=== PATIENT | male | born 1975 | race Caucasian/White ===

== ENCOUNTER 2019-07-12 07:21 | Inpatient (IN) | payer SELFPAY ==
[~2019-07-12] VITALS: Ht 175.3 cm; Wt 82.6 kg
--- NOTE | 2019-07-12 07:25 | NUR ---
PT KAVON FROM [place] STREETS, PER EMS ALTERED RESPONDS TO PAINFUL STIMULI ONLY PLANT GUIDE. PT NOTED TO BE VOMITING. GOWNED AND PLACED ON MONITOR. STABLE VITALS. AWAITING MD HUGHES.
--- NOTE | 2019-07-12 07:45 | NUR ---
DR AHUJA AT BEDSIDE FOR EVAL.
[2019-07-12 08:08] LABS: APPEARANCE,URINE Clear (CLEAR); BILIRUBIN,URINE Negative (NEGATIVE); BLOOD, URINE Trace-intact Ery/uL (NEGATIVE); COLOR,URINE Yellow (YELLOW); KETONES,URINE Trace (NEGATIVE); LEUKOCYTE ESTERASE ,URINE Negative (NEGATIVE); NITRITE, URINE Negative (NEGATIVE); PROTEIN,URINE 30 mg/dl (NEGATIVE); UGLUCOSE Negative (NEGATIVE)
[2019-07-12 08:10] LABS: BACTERIA,URINE Few /HPF (None Seen)
[2019-07-12 08:11] LABS: SQUAMOUS EPITHELIAL CELL,UR None Seen /HPF (None Seen)
[2019-07-12 08:14] LABS: CALCIUM, SERUM 8.8 mg/dL (8.5-10.1); CARBON DIOXIDE 23 mmol/L (21-32); CHLORIDE 103 mmol/L (98-107); CREATININE 1.1 mg/dL (0.6-1.3); GLUCOSE 149 mg/dL (74-106); POTASSIUM 3.8 mmol/L (3.5-5.1); SODIUM SERUM 139 mmol/L (136-145); UREA NITROGEN, BLOOD 18 mg/dL (7-18)
[2019-07-12 08:16] LABS: BASOPHILS % (AUTO) 0.2 % (0.0-2.0); EOSINOPHILS % (AUTO) 0.1 % (0.0-6.0); HEMATOCRIT 48 % (39-51); HEMOGLOBIN 15.9 g/dL (13.5-17.5); LYMPHOCYTES # (AUTO) 1.3 /CMM (0.8-4.8); LYMPHOCYTES % (AUTO) 7.6 % (20.0-44.0); MEAN CORPUSCULAR HGB CONC 33 g/dl (31.0-36.0); MEAN CORPUSCULAR VOLUME 89 fL (80-96); MONOCYTES # (AUTO) 0.8 /CMM (0.1-1.30); NEUTROPHILS # (AUTO) 14.6 /CMM (1.8-8.9); NEUTROPHILS % (AUTO) 87.1 % (43.0-81.0); PLATELET COUNT (AUTO) 252 /CMM (150-450); RED BLOOD CELL COUNT(AUTO) 5.36 MIL/uL (4.5-6.0); WHITE BLOOD COUNT (AUTO) 16.8 K/uL (4.3-11.0)
[2019-07-12 08:18] LABS: ALANINE AMINOTRANSFERASE 29 U/L (12-78); ALBUMIN 3.6 g/dL (3.4-5.0); ALCOHOL, BLOOD < 3 mg/dL (0-0); ALKALINE PHOSPHATASE 82 U/L (46-116); ASPARTATE AMINOTRANSFERASE 30 U/L (15-37); BILIRUBIN,DIRECT 0.2 mg/dL (0.0-0.2); BILIRUBIN,TOTAL 1.4 mg/dL (0.2-1.0)
[2019-07-12] MEDS ORDERED: MIDAZOLAM HCL 2 MG/2ML VIAL ONE (08:38)
[2019-07-12] MEDS ORDERED: MIDAZOLAM HCL 2 MG/2ML VIAL IV ONE (09:00)
--- NOTE | 2019-07-12 09:10 | NUR ---
PT GIVEN VERSED 2MG IVP, TAKEN TO RADIOLOGY FOR HEAD CT SCAN.
[2019-07-12] MEDS ORDERED: CLINDAMYCIN 600 MG in IV D5W 100 ML IV ONE (09:30)
--- NOTE | 2019-07-12 09:53 | NUR ---
CALLED NURSING SUP FOR TELE BED.
--- NOTE | 2019-07-12 11:07 | NUR ---
NS GAVE 103.
--- NOTE | 2019-07-12 11:36 | NUR ---
PAGED [facility].
--- NOTE | 2019-07-12 11:41 | NUR ---
REPORT GIVEN TO SHALONDA ALLEN FOR GAURAV. AWAITING TRANSFER TO FLOOR.
--- NOTE | 2019-07-12 12:00 | NUR ---
PT TRANSPORTED TO UNIT ON [facility] W/ 2 RN AT BEDSIDE W/ ACLS PROTOCOL. NAD NOTED.
--- NOTE | 2019-07-12 12:10 | NUR ---
RN OPENING NOTES RECEIVED PATIENT FROM ER. PT IS A/O X0, UNABLE TO PROVIDE INFORMATION. PATIENT IS HOMELESS. VITAL SIGNS ARE STABLE, TEMP, 97.5, 102HR, RESPIRATORY 18, O2 95% RA, BP 116/70. SAFETY MAINTAINED, CALL LIGHT WITHIN REACH. WILL CONTINUE TO MONITOR
[2019-07-12 12:15] VITALS: BP 116/70
--- NOTE | 2019-07-12 12:27 | NUR ---
UNABLE TO GO INTO THE PATIENT ROOM DUE TO NO AVAILABLE GOWNS. WAITING ON PPE TO GO INTO THE ROOM AND START THE ADMISSION PAPERWORK. NO ACUTE DISTRESS NOTED. SAFETY MAINTAINED, CALL LIGHT WITHIN REACH, WILL CONTINUE TO MONITOR.
[2019-07-12] MEDS ORDERED: IV NS 0.9% 1,000 ML IV PRN (13:19)
--- NOTE | 2019-07-12 13:22 | NUR ---
WAITING ON ORDERS FROM DR VILLAFUERTE. SPOKE TO HIM ON THE PHONE, WILL PUT IN ORDERS SOON POSSIBLE. SAFETY MAINTAINED, CALL LIGHT WITHIN REACH, WILL CONTINUE TO MONITOR.
[2019-07-12] MEDS ORDERED: ZOLPIDEM TARTRATE 5 MG TABLET PO PRN (13:30)
[2019-07-12] MEDS ORDERED: ONDANSETRON HCL/PF 4 MG/2 ML VIAL IVP PRN (13:30)
[2019-07-12] MEDS ORDERED: LORAZEPAM INJ 2 MG/ML VIAL IV PRN (13:30)
[2019-07-12] MEDS ORDERED: MAGNESIUM HYDROXIDE 30 ML UDC PO PRN (13:30)
[2019-07-12] MEDS ORDERED: Z GUARD REMEDY 2 OZ OINT TP PRN (13:30)
[2019-07-12] MEDS ORDERED: MAG HYDROX/AL HYDROX/SIMETH 30 ML UDC PO PRN (13:30)
[2019-07-12] MEDS ORDERED: ACETAMINOPHEN 325 MG TABLET PO PRN (13:30)
[2019-07-12] MEDS ORDERED: HYDROCODONE/APAP 5/325MG 1 EACH TABLET PO PRN (13:30)
--- NOTE | 2019-07-12 13:40 | NUR ---
Social service consult requested by MD regarding pt a Travis Carpio and limited information. Per MD notes and chart review, pt is a 44-year-old male from the street brought in by EMS after reported seizure. Bystanders called EMS. EMS reports that when they arrived they found vomit all over the patient and his mouth. Patient is acting erratically and unable to contribute to story. Pt was admitted to [facility]. LOCKSTITCH BACK MAKER contacted [facility] SANTI Miles to inquire if pt is alert and oriented. Per SANTI Miles, pt is altered and unable to provide any information at this time. Warm Handoff to tomorrow's SW to follow up with the pt.
[2019-07-12] MEDS: ENOXAPARIN SODIUM 40 MG/0.4 ML DISP.SYRIN SQ SCH (13:58)
[2019-07-12] MEDS ORDERED: FEE PK DOSING 1 MIN EA MC ONE (14:15)
--- NOTE | 2019-07-12 14:30 | NUR ---
RN NOTE NO IV PUMP AVAILABLE AT THE MOMENT TO GIVE THE 1400 IV MEDS. INSERTED A NEW IV LINE, 22G ON RIGHT FOREARM, SECOND TRY. NOTIFIED PHARMACY OF THE NEW LINE. PATIENT IS BEING TRANSFERRED TO 3RD FLOOR, ROOM 316, WAITING ON NURSE TO TAKE REPORT. PER CHARGE NURSE, ADMISSION PAPERS WILL BE DONE ON 3RD FLOOR.
[2019-07-12] MEDS: LEVETIRACETAM (500MG) 1,000 MG in IV NS 0.9% 100 ML IV SCH (14:55)
[2019-07-12] MEDS ORDERED: PIPERACILLIN /TAZOBACTAM 4.5 G in IV D5W 50 ML IV ONE (15:00)
[2019-07-12] MEDS: VANCOMYCIN 1 GM in IV D5W 250 ML IV SCH ×2 (15:13→22:25)
--- NOTE | 2019-07-12 17:22 | NUR ---
RN NOTE PATIENT HAS REFUSED PICTURES TO BE TAKEN. STATES "I DO NOT WANT PEOPLE TO KNOW THAT I AM A TERMINATOR, ITS OK THAT YOU KNOW BUT I DO NOT WANT OTHERS TO KNOW" ATTEMPTED TO REORIENT THE PATIENT, STILL REFUSES PICTURES. PATIENT HAS MANY SCABS AROUND THE BODY WITH DIFFERENT HEALING STAGES. DISCOLORATION ON THE HANDS NOTED, AND RED SCABS ON THE BODY.
[2019-07-12 18:44] VITALS: BP 124/76
--- NOTE | 2019-07-12 19:30 | NUR ---
RN CLOSING NOTES PATIENT REMAINED IN STABLE CONDITION DURING MY ECOLOGY TEACHER. PATIENT IS MORE ALERT AT THE MOMENT, ON 2L OXYGEN, TOLERATING WELL. SATURATION AT 98%. PATIENT IS [place] ON TELE MONITOR, WITH HR AT 113. ALL SCHEDULED MEDS GIVEN ON TIME. NO ACUTE DISTRESS NOTED AT THE MOMENT. IV ON RIGHT AC #18, INTACT, PATENT AND FLUSHED WELL, #22G ON RIGHT FOREARM IS INTACT, PATENT AND FLUSHED WELL. NS RUNNING AT ORDERED RATE. ADMISSION PACKET HAS BEEN COMPLETE. SAFETY WAS MAINTAINED, CALL LIGHT WITHIN REACH, ENDORSED PATIENT TO PM NURSE TO CONTINUE CARE.
--- NOTE | 2019-07-12 19:30 | NUR ---
TELE1 RN NOTES RECEIVED ON BED A/O X1-2,ABLE TO SAY HIS NAME( CHEPE?),BREATHING NON LABORED,NOTED ON AND OFF PRODUCTIVE COUGH,ISOLATION PRECAUTION FOR COVID-19 R/O,WITH ORAL TEMP OF 99.8.HOMELESS,WITH SALINE LOCK RIGHT AC INTACT AND PATENT AND RIGHT FORE ARM #22 FOR MEDS.PRESENT IVF IN PROGRESS AT 75ML/HR RATE VIA IV PUMP.WILL CONTINUE TO MONITOR STATUS.
--- NOTE | 2019-07-12 19:52 | NUR ---
RN NOTE INCIDENT REPORT FILED FOR COVID19 ADMISSION
[2019-07-12 20:00] VITALS: BP 104/77
[2019-07-12] MEDS: PIPERACILLIN /TAZOBACTAM 3.375 G in IV D5W 100 ML IV SCH (20:30)
[2019-07-12] MEDS ORDERED: PIPERACILLIN /TAZOBACTAM 3.375 G in IV D5W 50 ML IV SCH (21:00)
--- NOTE | 2019-07-12 21:00 | NUR ---
WASHERY BOSS NOTES PATIENT EASILY GETS AGITATED.ALWAYS ASKING FOR FOOD
[2019-07-13] VITALS: BP 107/65
[2019-07-13] MEDS: LEVETIRACETAM (500MG) 1,000 MG in IV NS 0.9% 100 ML IV SCH (02:07)
[2019-07-13 04:00] VITALS: BP 101/65
[2019-07-13] MEDS: PIPERACILLIN /TAZOBACTAM 3.375 G in IV D5W 100 ML IV SCH (04:12)
[2019-07-13] MEDS: VANCOMYCIN 1 GM in IV D5W 250 ML IV SCH (05:22)
--- NOTE | 2019-07-13 06:02 | NUR ---
DEMONSTRATOR SEWING TECHNIQUES NOTES FAIRLY RESTED,SLEPT WITH INTERVALS,NEEDS RE ORIENTATION ALL THE TIME.TELE MONITOR ON STANDBY,PATIENT REFUSED.NO SEIZURE ACTIVITY NOTED.IV ABX TOLERATED WELL.NO N/V/D NOTED.AFEBRILE,IN NO ACUTE DISTRESS.CALL LIGHT IN REACH,NEEDS ATTENDED.
[2019-07-13 07:21] LABS: BASOPHILS % (AUTO) 0.3 % (0.0-2.0); EOSINOPHILS % (AUTO) 1.7 % (0.0-6.0); HEMATOCRIT 40 % (39-51); HEMOGLOBIN 13.2 g/dL (13.5-17.5); LYMPHOCYTES # (AUTO) 1.3 /CMM (0.8-4.8); LYMPHOCYTES % (AUTO) 10.5 % (20.0-44.0); MEAN CORPUSCULAR HGB CONC 33 g/dl (31.0-36.0); MEAN CORPUSCULAR VOLUME 87 fL (80-96); MONOCYTES # (AUTO) 0.4 /CMM (0.1-1.30); MONOCYTES % (AUTO) 3.4 % (2.0-12.0); NEUTROPHILS # (AUTO) 10.2 /CMM (1.8-8.9); NEUTROPHILS % (AUTO) 84.1 % (43.0-81.0); PLATELET COUNT (AUTO) 233 /CMM (150-450); RED BLOOD CELL COUNT(AUTO) 4.55 MIL/uL (4.5-6.0); WHITE BLOOD COUNT (AUTO) 12.1 K/uL (4.3-11.0)
[2019-07-13 07:43] LABS: ALBUMIN 2.8 g/dL (3.4-5.0); BILIRUBIN,TOTAL 1.4 mg/dL (0.2-1.0); CALCIUM, SERUM 8.2 mg/dL (8.5-10.1); CREATININE 1.1 mg/dL (0.6-1.3); MAGNESIUM 1.9 mg/dL (1.8-2.4); PHOSPHORUS 2.5 mg/dL (2.5-4.9); POTASSIUM 3.7 mmol/L (3.5-5.1); TOTAL PROTEIN, SERUM 6.5 g/dL (6.4-8.2)
[2019-07-13 07:55] LABS: THYROID STIMULATING HORMONE 2.622 uIU/mL (0.358-3.74)
[2019-07-13 08:00] VITALS: BP 90/58
[2019-07-13] MEDS ORDERED: PANTOPRAZOLE 40 MG VIAL IV SCH (09:00)
[2019-07-13] MEDS: ENOXAPARIN SODIUM 40 MG/0.4 ML DISP.SYRIN SQ SCH (09:43)
--- NOTE | 2019-07-13 11:10 | NUR ---
Travis Carpio refusal of further treatment, request leaving against medical advice form. Has a copy of belongings and his exit care. Medical Doctor notified of patient situation. Vikram Pedersen RN
== END 2019-07-13 11:25 | disposition left against medical advice (07) | DRG 917 ==
LOC: ER 07:24 → TELE1 11:32
PROVIDERS: ADMIT Hospitalist; ATTEND Hospitalist
DX: T43.621A Poisoning by amphetamines, accidental (unintentional), initial encounter (principal); J69.0 Pneumonitis due to inhalation of food and vomit; G92 Toxic encephalopathy; D72.829 Elevated white blood cell count, unspecified; F15.10 Other stimulant abuse, uncomplicated; E80.6 Other disorders of bilirubin metabolism; R56.9 Unspecified convulsions; T40.7X1A Poisoning by cannabis (derivatives), accidental (unintentional), initial encounter; Y92.89 Other specified places as the place of occurrence of the external cause; R40.2413 Glasgow coma scale score 13-15, at hospital admission
CPT/HCPCS: 36415; 70450-TC; 71045-TC; 80048-TC; 80053-TC; 80061-TC; 80076-TC; 80305; 81000-TC; 82962-TC; 83735-TC; 84100-TC; 84443-TC; 85025-TC; 87040-TC; 87081-TC; 87086-TC; C9113; G0378; G0480; J1650; J1953; J2250; J2543; J3370; J3490; J7030; J7050; J7060; J7120